=== PATIENT | female | born 1935 | race Caucasian/White ===

== ENCOUNTER → 2016-09-17 | Outpatient (CLI) | payer OTHER, BC | LOC: BHLMT 10:00 | PROVIDERS: ATTEND Internal Medicine Cardiovascular Disease | DX: I48.91 Unspecified atrial fibrillation (principal) | CPT/HCPCS: 93017-PO ==

== ENCOUNTER → 2016-09-22 | Outpatient (CLI) | payer OTHER, BC ==
--- NOTE | 2016-09-22 15:36 | DX ---
PA and lateral chest. 09/22/2016. Clinical History: Follow-up right pleural effusion. Comparison Study: August 10, 2016. Findings: Decreasing right pleural effusion is identified from prior examination. Mild residual blunt ing of the right costophrenic angle. Left lung is clear. Heart size is normal. Post traumatic deformity of the right ribs appears unchanged.. Impression: Decreasing right pleural effusion from prior examination, otherwise unchanged.
== END ==
LOC: FIMAGING 11:18
PROVIDERS: ATTEND Internal Medicine Pulmonary Disease
DX: J90 Pleural effusion, not elsewhere classified (principal)

== ENCOUNTER 2016-10-28 12:07 | Observation (INO) | payer OTHER, BC ==
[2016-10-28] MEDS ORDERED: diphenhydrAMINE 25 MG CAP PO ONE (12:15)
[2016-10-28] MEDS ORDERED: DIAZEPAM 5 MG TAB PO ONE (12:15)
[2016-10-28] MEDS ORDERED: BACITRACIN IRRIGATION/NS 50,000 UNITS/1,000 ML BTL IRR ONE (12:15)
[2016-10-28] MEDS ORDERED: ceFAZolin 2 GM/DEXTROSE 100 ML IV ONE (12:15)
[2016-10-28] MEDS ORDERED: NS 1,000 ML IV ONE (12:15)
--- NOTE | 2016-10-28 12:54 | CPEKG ---
Heart Rate: 68 RR Interval: 882 QRSD Interval: 72 QT Interval: 408 QTC Interval: 434 QRS [place]: 72 T Wave [place]: -54 EKG Severity - ABNORMAL ECG - EKG Impression: ATRIAL FIBRILLATION EKG Impression: LOW VOLTAGE THROUGHOUT EKG Impression: NONSPECIFIC T ABNORMALITIES, ANTERIOR LEADS Electronically Signed By: Ronal Montilla 28-Oct-2016 12:58:36
[2016-10-28 13:00] LABS: % IMMATURE GRANULYOCYTES 0.4 % (0.0-1.1); ABSOLUTE IMMATURE GRANULOCYTES 0.03 10^3/uL (0.00-0.10); ADD DIFF? NO; ADD MORPH? NO; ADD SCAN? NO; ATYPICAL LYMPHOCYTE FLAG 10 (0-99); FRAGMENT RBC FLAG 0 (0-99); HEMATOCRIT 43.7 % (38.0-47.0); HEMOGLOBIN 14.3 g/dL (12.6-16.3); LEFT SHIFT FLG 0 (0-99); LIPEMIA HEMOLYSIS FLAG 80 (0-99); MEAN CELL HEMOGLOBIN 29.2 pg (27.9-34.1); MEAN CELL HEMOGLOBIN CONCENTR. 32.7 g/dL (32.4-36.7); MEAN CELL VOLUME 89.4 fL (81.5-99.8); MEAN PLATELET VOLUME 11.6 fL (8.7-11.7); PLATELET CLUMPS FLAG 0 (0-99); PLATELET COUNT 258 10^3/uL (150-400); RED BLOOD CELL COUNT 4.89 10^6/uL (4.18-5.33); RED CELL DISTRIBUTION WIDTH 13.9 % (11.5-15.2)
[2016-10-28 13:19] LABS: INR 1.1 (0.83-1.16); PROTIME(PATIENT) 14.1 SEC (12.0-15.0)
[2016-10-28 13:21] LABS: ANION GAP 10 mEq/L (8-16); CALCIUM 9.4 mg/dL (8.5-10.4); CARBON DIOXIDE 21 mEq/l (22-31); CHLORIDE 108 mEq/L (97-110); CREATININE 0.6 mg/dL (0.6-1.0); GLOMERULAR FILTRATION RATE > 60; GLUCOSE 108 mg/dL (70-100); POTASSIUM 4.4 mEq/L (3.5-5.2); SODIUM 139 mEq/L (134-144)
[2016-10-28] MEDS ORDERED: LIDOCAINE 1% 30 ML SDV ONE (13:32)
[2016-10-28] MEDS ORDERED: LIDO/EPI 1% **for epidural** 30 ML SDV ONE (13:32)
[2016-10-28] MEDS ORDERED: fentaNYL 100 MCG/2 ML INJ ONE (13:33)
[2016-10-28] MEDS ORDERED: BUPIVACAINE 0.5% 30 ML SDV ONE (13:33)
[2016-10-28] MEDS ORDERED: MIDAZOLAM 2 MG/2 ML VIAL ONE (13:33)
[2016-10-28] MEDS ORDERED: IOPAMIDOL (ISOVUE-300) 200 ML BTL IV ONE (14:34)
[2016-10-28] MEDS ORDERED: traMADol 50 MG TAB PO ONE (16:30)
[2016-10-28] MEDS: CARVEDILOL 3.125 MG TAB PO SCH (18:44)
[2016-10-28] MEDS ORDERED: hydrOXYzine HCL 25 MG TAB PO SCH (21:00)
[2016-10-28] MEDS ORDERED: PRAVASTATIN SODIUM 20 MG TAB PO SCH (21:00)
[2016-10-28] MEDS ORDERED: DIGOXIN 125 MCG TAB PO SCH (21:00)
[2016-10-28] MEDS: traMADol 50 MG TAB PO PRN (21:22)
[2016-10-29 05:10] LABS: % IMMATURE GRANULYOCYTES 0.4 % (0.0-1.1); ABSOLUTE IMMATURE GRANULOCYTES 0.04 10^3/uL (0.00-0.10); ADD DIFF? NO; ADD MORPH? NO; ADD SCAN? NO; ATYPICAL LYMPHOCYTE FLAG 20 (0-99); FRAGMENT RBC FLAG 0 (0-99); HEMATOCRIT 37.8 % (38.0-47.0); HEMOGLOBIN 12.2 g/dL (12.6-16.3); LEFT SHIFT FLG 0 (0-99); LIPEMIA HEMOLYSIS FLAG 80 (0-99); MEAN CELL HEMOGLOBIN 29.3 pg (27.9-34.1); MEAN CELL HEMOGLOBIN CONCENTR. 32.3 g/dL (32.4-36.7); MEAN CELL VOLUME 90.9 fL (81.5-99.8); MEAN PLATELET VOLUME 12.1 fL (8.7-11.7); PLATELET CLUMPS FLAG 0 (0-99); PLATELET COUNT 203 10^3/uL (150-400); RED BLOOD CELL COUNT 4.16 10^6/uL (4.18-5.33); RED CELL DISTRIBUTION WIDTH 13.9 % (11.5-15.2)
[2016-10-29 05:25] LABS: ANION GAP 8 mEq/L (8-16); CALCIUM 8.7 mg/dL (8.5-10.4); CARBON DIOXIDE 21 mEq/l (22-31); CHLORIDE 106 mEq/L (97-110); CREATININE 0.6 mg/dL (0.6-1.0); GLOMERULAR FILTRATION RATE > 60; GLUCOSE 79 mg/dL (70-100); POTASSIUM 4.3 mEq/L (3.5-5.2); SODIUM 135 mEq/L (134-144)
[2016-10-29] MEDS ORDERED: LEVOTHYROXINE 50 MCG TAB PO SCH (06:00)
[2016-10-29] MEDS: traMADol 50 MG TAB PO PRN (07:30)
[2016-10-29] MEDS: CARVEDILOL 3.125 MG TAB PO SCH (07:49)
[2016-10-29 08:24] VITALS: BP 109/48; PULSE 82; RESP 19; TEMP 97.6; O2SAT 92
--- NOTE | 2016-10-29 08:40 | CPEKG ---
Heart Rate: 88 RR Interval: 682 QRSD Interval: 72 QT Interval: 372 QTC Interval: 450 QRS [place]: 88 T Wave [place]: -69 EKG Severity - ABNORMAL ECG - EKG Impression: AFIB/FLUT AND V-PACED COMPLEXES EKG Impression: LOW VOLTAGE IN FRONTAL LEADS EKG Impression: BORDERLINE PROLONGED QT INTERVAL Electronically Signed By: Ronal Montilla 29-Oct-2016 12:11:54
[2016-10-29] MEDS ORDERED: PANTOPRAZOLE SODIUM 40 MG TAB PO SCH (09:00)
[2016-10-29] MEDS ORDERED: CITALOPRAM 20 MG TAB PO SCH (09:00)
[2016-10-29] MEDS ORDERED: SPIRONOLACTONE 25 MG TAB PO SCH (09:00)
[2016-10-29] MEDS ORDERED: RIVAROXABAN 20 MG TAB PO SCH (09:00)
[2016-10-29] MEDS ORDERED: CHOLECALCIFEROL VIT D3 1,000 UNITS TAB PO SCH (09:00)
--- NOTE | 2016-10-29 15:21 | PDIAF ---
- Diagnosis Diagnosis: AF/Sick sinus syndrome Code Status: Full Code - Medication Management Discharge Medications: Medications to Continue on Transfer Carvedilol [Coreg (*)] 1.5625 mg PO BIDMEAL 10/28/16 [Last Taken 10/28/16] Cholecalciferol Vit D3 [Vitamin D3 (*)] 1,000 units PO DAILY 10/28/16 [Last Taken 10/28/16] Citalopram Hydrobromide [Citalopram HBr] 10 mg PO DAILY 10/28/16 [Last Taken ] Digoxin [Digitek] 125 mcg PO HS 10/28/16 [Last Taken 10/27/16] Levothyroxine [Synthroid 50 mcg (*)] 50 mcg PO DAILY06 10/28/16 [Last Taken ] Lovastatin 20 mg PO HS 10/28/16 [Last Taken 10/27/16] Pantoprazole Sodium [Protonix 40mg (*)] 40 mg PO DAILY 10/28/16 [Last Taken ] Rivaroxaban [Xarelto] 20 mg PO DAILY 10/28/16 [Last Taken 10/24/16] Spironolactone [Aldactone 25 MG (*)] 25 mg PO DAILY 10/28/16 [Last Taken ] hydrOXYzine HCL [hydrOXYzine HCL (RX)] 25 mg PO HS 10/28/16 [Last Taken 10/27/16 ] traMADol [Ultram 50 mg (*)] 50 mg PO Q12 PRN #20 tab 10/29/16 [Last Taken Unknown] Discharge Medications: Refer to the Discharge Home Medication list for PRN reason. - Orders Services needed: Physical Therapy Diet Recommendation: no restrictions on diet Diet Texture: Regular Texture Diet - Follow Up Care Current Providers and Referrals: Armand Beyer MD [Primary Care Provider] - Gabriele Noble MD [Medical Doctor] - follow up in 2 weeks
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
--- NOTE | 2016-10-30 10:47 | EPPROC ---
Electrophysiology Procedure Note: PROCEDURE PERFORMED: * Implantation of an V Pacemaker * Fluoroscopy INDICATION: THis is a 80 yr old with symtomatic chronic AF with low BP with AV node blockers and high HR without them. Hence it was decided to perform PPM implant and AV node ablation. Hence pt was brought in to place single chamber PPM. PROCEDURE NOTE: Patient presented to the cardiac catherization laboratory in a fasting, post absorptive state. Cardiac laboratory operations coordinator nurse administered moderate sedation. The left infraclavicular area was prepped and draped in the usual sterile fashion. Lidocaine plus bupivacaine was used for local anesthesia. Using a combination of blunt and sharp dissection and electrocautery, the dissection was carried down to the prepectoral fascia. Fluoroscopy was utilized during the entire procedure for venous access and placement of the leads. Using usual technique, left cephalic vein was accessed and a 7F sheath was placed. Placement of the guidewire into the venous system was confirmed by low- pressure blood return and also by visualizing the guide wire advancing into the inferior vena cava. A purse string suture was applied around the guide wire. One #7 Malagasy sheath was advanced under fluoroscopic guidance over the guidewire. An active fixation ventricular lead was advanced into the right ventricular apex and screwed in place. The peel away sheath was removed. Pacing thresholds, sensing parameters and lead impedances were measured. There was no diaphragmatic stimulation at maximum output. The lead was sutured to the prepectoral fascia with 3 nonabsorbable sutures.Pocket was created and flushed using antibiotic solution. The pocket was again inspected for any bleeding. The lead was attached to the pacemaker securely. The pacemaker was inserted into the pocket and secured in place with a nonabsorbable suture. Fluoroscopy was performed in ARTHUR and GREEK planes to verify right-sided placement of the lead. Also fluoroscopy of the pacemaker pocket was performed. The pacemaker pocket was closed in 3 layers with absorbable monocryl sutures. Appropriate dressing was applied. The patient left the cardiac catheterization laboratory in stable condition. Serial Numbers: * Device: Biotronik ELuna SN [id number] * Ventricular Lead: Biotronik Solia S53 SN [id number] Stimulation Thresholds & Impedance Measurements: * Ventricular Lead 7.7mV, 0.4@0.4ms, 576Ohms [place] Pacing Parameters * Pacing mode: VVI * Lower rate: 60 Patient Problems: Problems Problem Status Onset Recurrent right pleural effusion Acute
== END 2016-10-29 12:25 | disposition home health service (06) ==
LOC: FCATH 12:07 → F2W 13:10
PROVIDERS: ADMIT Internal Medicine Cardiovascular Disease; ATTEND Internal Medicine Cardiovascular Disease
DX: I48.2 Chronic atrial fibrillation (principal); I95.2 Hypotension due to drugs; T46.2X5A Adverse effect of other antidysrhythmic drugs, initial encounter; I50.32 Chronic diastolic (congestive) heart failure
CPT/HCPCS: 33207; 71020; 93005; C1769; C1786; C1898; J0690; J2250; J3010; Q9967

== ENCOUNTER 2016-11-19 07:27 | Observation (INO) | payer OTHER, BC ==
[~2016-11-19 07:27] MED LIST: MIDAZOLAM 2 MG/2 ML VIAL IVP ONE; NS 1,000 ML IV ONE
[2016-11-19] MEDS ORDERED: HEPARIN 10,000 UNIT/10 ML MDV ONE (07:52)
[2016-11-19] MEDS ORDERED: ISOPROTERENOL HCL 0.2 MG/ML 5ML AMP ONE (07:52)
[2016-11-19] MEDS ORDERED: LIDOCAINE 1% 30 ML SDV ONE (07:52)
[2016-11-19] MEDS ORDERED: BUPIVACAINE 0.5% 30 ML SDV ONE (07:52)
--- NOTE | 2016-11-19 07:52 | CPEKG ---
Heart Rate: 91 RR Interval: 659 QRSD Interval: 80 QT Interval: 364 QTC Interval: 448 QRS [place]: 89 T Wave [place]: -74 EKG Severity - ABNORMAL ECG - EKG Impression: AFIB/FLUT AND V-PACED COMPLEXES EKG Impression: BORDERLINE RIGHT AXIS DEVIATION EKG Impression: NONSPECIFIC REPOL ABNORMALITY, DIFFUSE LEADS Electronically Signed By: Schuyler Wagner 20-Nov-2016 08:57:11
[2016-11-19 08:09] LABS: % IMMATURE GRANULYOCYTES 0.6 % (0.0-1.1); ABSOLUTE IMMATURE GRANULOCYTES 0.05 10^3/uL (0.00-0.10); ADD DIFF? NO; ADD MORPH? NO; ADD SCAN? NO; ATYPICAL LYMPHOCYTE FLAG 10 (0-99); FRAGMENT RBC FLAG 0 (0-99); HEMATOCRIT 45.2 % (38.0-47.0); HEMOGLOBIN 15.1 g/dL (12.6-16.3); LEFT SHIFT FLG 0 (0-99); LIPEMIA HEMOLYSIS FLAG 80 (0-99); MEAN CELL HEMOGLOBIN CONCENTR. 33.4 g/dL (32.4-36.7); MEAN CELL VOLUME 89.7 fL (81.5-99.8); MEAN PLATELET VOLUME 11.6 fL (8.7-11.7); PLATELET CLUMPS FLAG 10 (0-99); PLATELET COUNT 249 10^3/uL (150-400); RED BLOOD CELL COUNT 5.04 10^6/uL (4.18-5.33); RED CELL DISTRIBUTION WIDTH 13.9 % (11.5-15.2)
[2016-11-19 08:18] LABS: INR 1.14 (0.83-1.16); PROTIME(PATIENT) 14.5 SEC (12.0-15.0)
[2016-11-19 08:19] LABS: APTT 29.9 SEC (23.0-38.0)
[2016-11-19 08:23] LABS: ANION GAP 11 mEq/L (8-16); CALCIUM 9.3 mg/dL (8.5-10.4); CARBON DIOXIDE 20 mEq/l (22-31); CHLORIDE 105 mEq/L (97-110); CREATININE 0.6 mg/dL (0.6-1.0); DIGOXIN 0.6 ng/mL (0.8-2.0); GLOMERULAR FILTRATION RATE > 60; GLUCOSE 94 mg/dL (70-100); MAGNESIUM 1.9 mg/dL (1.6-2.3); POTASSIUM 4.3 mEq/L (3.5-5.2); SODIUM 136 mEq/L (134-144)
[2016-11-19] MEDS ORDERED: ONDANSETRON 4 MG/2 ML VIAL ONE (08:47)
[2016-11-19] MEDS ORDERED: PROPOFOL 200 MG/20 ML VIAL ONE (08:47)
[2016-11-19] MEDS ORDERED: LIDOCAINE 2% JELLY 5 ML TUBE ONE (08:47)
[2016-11-19] MEDS ORDERED: fentaNYL 250 MCG/5 ML INJ ONE (08:47)
[2016-11-19] MEDS ORDERED: RIVAROXABAN 20 MG TAB PO SCH ×2 (09:00→21:00)
[2016-11-19] MEDS ORDERED: PHENYLEPHRINE HCL 100 MCG/ML SYR ONE ×3 (09:02→09:39)
[2016-11-19] MEDS ORDERED: epHEDrine SULFATE 10 MG/ML SYR ONE (09:05)
[2016-11-19] MEDS ORDERED: ACETAMINOPHEN 325 MG TAB PO PRN (09:42)
[2016-11-19] MEDS ORDERED: OXYCODONE/APAP 5/325 TAB PO PRN (09:42)
[2016-11-19] MEDS ORDERED: ONDANSETRON 4 MG/2 ML VIAL IVP PRN (09:42)
--- NOTE | 2016-11-19 10:26 | CPEKG ---
Heart Rate: 99 RR Interval: 606 P-R Interval: 137 QRSD Interval: 116 QT Interval: 412 QTC Interval: 529 P [place]: 0 QRS [place]: -76 T Wave [place]: 101 EKG Severity - ABNORMAL ECG - EKG Impression: VENTRICULAR-PACED RHYTHM Electronically Signed By: Schuyler Wagner 20-Nov-2016 08:57:21
[2016-11-19 10:41] LABS: ANION GAP 8 mEq/L (8-16); CALCIUM 8.7 mg/dL (8.5-10.4); CARBON DIOXIDE 20 mEq/l (22-31); CHLORIDE 108 mEq/L (97-110); CREATININE 0.6 mg/dL (0.6-1.0); GLOMERULAR FILTRATION RATE > 60; GLUCOSE 87 mg/dL (70-100); MAGNESIUM 1.9 mg/dL (1.6-2.3); POTASSIUM 4.2 mEq/L (3.5-5.2); SODIUM 136 mEq/L (134-144)
[2016-11-19] MEDS: PANTOPRAZOLE SODIUM 40 MG TAB PO SCH (12:05)
[2016-11-19] MEDS: SPIRONOLACTONE 25 MG TAB PO SCH (12:05)
[2016-11-19] MEDS ORDERED: NON-FORMULARY NEW DRUG (Lovastatin [Lovastatin] 20 MG) PO SCH (21:00)
[2016-11-19] MEDS ORDERED: hydrOXYzine HCL 25 MG TAB PO SCH (21:00)
[2016-11-19] MEDS ORDERED: PRAVASTATIN SODIUM 20 MG TAB PO SCH (21:00)
[2016-11-20 05:09] LABS: % IMMATURE GRANULYOCYTES 0.5 % (0.0-1.1); ABSOLUTE IMMATURE GRANULOCYTES 0.04 10^3/uL (0.00-0.10); ADD DIFF? NO; ADD MORPH? NO; ADD SCAN? NO; ATYPICAL LYMPHOCYTE FLAG 10 (0-99); FRAGMENT RBC FLAG 20 (0-99); HEMATOCRIT 41.5 % (38.0-47.0); HEMOGLOBIN 13.6 g/dL (12.6-16.3); LEFT SHIFT FLG 0 (0-99); LIPEMIA HEMOLYSIS FLAG 80 (0-99); MEAN CELL HEMOGLOBIN 29.8 pg (27.9-34.1); MEAN CELL HEMOGLOBIN CONCENTR. 32.8 g/dL (32.4-36.7); MEAN CELL VOLUME 90.8 fL (81.5-99.8); MEAN PLATELET VOLUME 11.5 fL (8.7-11.7); PLATELET CLUMPS FLAG 10 (0-99); PLATELET COUNT 215 10^3/uL (150-400); RED BLOOD CELL COUNT 4.57 10^6/uL (4.18-5.33); RED CELL DISTRIBUTION WIDTH 13.6 % (11.5-15.2)
[2016-11-20 05:14] LABS: ANION GAP 6 mEq/L (8-16); CALCIUM 8.9 mg/dL (8.5-10.4); CARBON DIOXIDE 25 mEq/l (22-31); CHLORIDE 106 mEq/L (97-110); CREATININE 0.6 mg/dL (0.6-1.0); GLOMERULAR FILTRATION RATE > 60; GLUCOSE 72 mg/dL (70-100); POTASSIUM 4.5 mEq/L (3.5-5.2); SODIUM 137 mEq/L (134-144)
[2016-11-20 05:20] LABS: INR 2.99 (0.83-1.16); PROTIME(PATIENT) 31.5 SEC (12.0-15.0)
[2016-11-20 05:23] LABS: CREATINE KINASE-MB FRACTION 1.57 ng/mL (0-3.19); TROPONIN I 0.129 ng/mL (0-0.034)
[2016-11-20] MEDS ORDERED: LEVOTHYROXINE 50 MCG TAB PO SCH (06:00)
[2016-11-20 07:45] VITALS: PULSE 100
--- NOTE | 2016-11-20 08:47 | CPEKG ---
Heart Rate: 99 RR Interval: 606 QRSD Interval: 130 QT Interval: 404 QTC Interval: 519 QRS [place]: -79 T Wave [place]: 96 EKG Severity - ABNORMAL ECG - EKG Impression: ATRIAL FIBRILLATION WITH VENTRICULAR PACING Electronically Signed By: Schuyler Wagner 20-Nov-2016 14:09:18
[2016-11-20] MEDS: PANTOPRAZOLE SODIUM 40 MG TAB PO SCH (08:51)
[2016-11-20] MEDS: SPIRONOLACTONE 25 MG TAB PO SCH (08:52)
[2016-11-20] MEDS ORDERED: NON-FORMULARY NEW DRUG (Citalopram Hydrobromide [Citalopram Hbr] 10 MG) PO SCH (09:00)
[2016-11-20] MEDS ORDERED: CITALOPRAM 20 MG TAB PO SCH (09:00)
[2016-11-20] MEDS ORDERED: Herbals/Supplements -Info Only PO SCH (09:00)
[2016-11-20] MEDS ORDERED: CHOLECALCIFEROL VIT D3 1,000 UNITS TAB PO SCH (09:00)
[2016-11-20 09:24] LABS: INR 2.41 (0.83-1.16); PROTIME(PATIENT) 26.5 SEC (12.0-15.0)
--- NOTE | 2016-11-20 09:47 | EPPROC ---
Electrophysiology Procedure Note: CATHETER MEDIATED ABLATION OF THE AV JUNCTION Procedures performed: 53912 AV node ablation Fluoroscopy INDICATION: Atrial fibrillation, unable to rate control despite maximally tolerated medical therapy Catheters & Anesthesia: The patient arrived in the Electrophysiology Laboratory in the fasting state. General sedation was administered. The right groin and left groin area were prepped and draped in the usual sterile manner. Appropriate non-invasive blood pressure, pulse oximetry and end-tidal CO2 monitoring was established. All catheters were placed percutaneously using the modified Seldinger technique and advanced into position under fluoroscopic guidance). A #7 Moroccan deflectable quadrapolar electrode catheter (2mm-5mm-2mm spacing) with 8 mm tip electrode was advanced to the right atrium. A total of 3 RF applications were delivered. RF#1 was applied in the area of the compact AV node. RF#2 was applied to the same area as RF#1. RF#3 was applied to the area of the fast AV brian pathway. RF#4 was applied to the right midseptal tricuspid annulus. There was complete AV block after RF#1. Cessation of pacing revealed that there was junctional escape rhythm at a rate of 43 bpm. Pacemaker implantation was done previously. The pacemaker was programmed to a lower rate of 100 ppm to reduce the risk of sudden associated with torsades de pointes. The lower rate will gradually be reduced to 60 ppm after 1 month . Fluoroscopically pacemaker lead positions were unchanged after procedure Pacemaker thresholds and impedances were unchanged after the procedure The catheters were removed. The patient was transferred to the cardiovascular holding area in stable condition. Vascular access sheaths were removed in the holding area. There were no apparent complications. CONCLUSIONS: * Atrial fibrillation with rapid ventricular response. * Successful ablation of the AV junction producing complete AV block. * Junctional escape rhythm at a rate of 42 bpm. * No complications. Patient Problems: Problems Problem Status Onset Recurrent right pleural effusion Acute
[2016-11-20] MEDS ORDERED: RANITIDINE SYRUP 15 MG/1 ML UDSYR PO SCH (10:30)
[2016-11-20] MEDS ORDERED: FAMOTIDINE 20 MG TAB PO PRN (10:58)
[2016-11-20] MEDS ORDERED: FAMOTIDINE 20 MG TAB PO ONE (11:00)
--- NOTE | 2016-11-20 11:04 | ECHO ---
[id number] + + [address] : : [place] [address] : : [phone] + Adult Echocardiographic Report + ------+ :Name: BREANA PAULINO LStudy Date: 11/20/2016 08:55 AM : : Hospital Admission Number: [id number] Locatio n: 217: :: 1935 Gender: Female Height: 67 in : :Age: 80 yrs Race: WH Weight: 144 lb : :Reason For Study: Eval for Effusion : : BSA: 1.8 meters 2 : :History: AV brian Ablation : + ------+ MMode/2D Measurements \T\ Calculations IVSd: 0.74 cm LVIDd: 3.0 cm FS: 33.9 % LVPWd: 0.77 cm LVIDs: 2.0 cm EDV(Teich): 35.6 ml ESV(Teich): 12.7 ml EF(Teich): 64.4 % Normal Measurement Values: + + :LVIDd (3.5-5.7cm) IVSd (0.6-1.1cm) LVPWd (0.6-1.1cm) Aortic Root (2.0-3.7cm)Left Atrium (1.5-4.0cm): :LV Vol(d) (76-115ml) LV Vol(s) (29-48ml) Ejec Fraction (50-65%)PV Dannie (0.6- 1.2m/s) TV Dannie (0.4-1.0m/s) : :MV E Dannie (0.8-1.0m/s)MV A Dannie (0.3-1.0m/s)LVOT Dannie (0.7-1.2m/s) Asc Ao Dannie ( 0.9-1.8m/s) : + + Left Ventricle The left ventricular ejection fraction is normal. Right Ventricle There is a pacemaker lead in the right ventricle. Pericardium/Pleural There is a fat pad seen. There is no pericardial effusion. Conclusion This is a limited echo to evaluate for a pericardial effusion. This is a limited echo to evaluate for a pericardial effusion. The left ventricular ejection fraction is normal. There is a pacemaker lead in the right ventricle. There is a fat pad seen. There is no pericardial effusion. Final Reading Physician: Wyatt Avalos, Melectronically signed on 11/20/2016 11:02 AM Ordering Physician: Marylin Monroy Performed By: Luis M Bailey, MATILDECS
[2016-11-20 11:44] VITALS: BP 110/66; RESP 20; TEMP 98.3; O2SAT 92
--- NOTE | 2016-11-20 12:47 | GDS ---
[f rep st] DISCHARGE SUMMARY DISCHARGE DIAGNOSES: 1. Chronic atrial fibrillation status post pacer placement and AV brian ablation. 2. Nonobstructive coronary artery disease. 3. Chronic diastolic congestive heart failure. 4. Reflux. HOSPITAL COURSE: For detailed H and P, please see prior dictation. Briefly, the patient is an 80-y ear-old female with a history of chronic atrial fibrillation and complaints of shortness of breath. She wore a monitor and her symptoms of shortness of breath did correlate with elevated rates of 130 beats per minute. She was started on Coreg with minimal improvement in her elevated rates. Ultima tely, she decided to proceed with pacemaker placement and AV brian ablation. Her pacer was placed a few weeks ago and was uncomplicated. She was readmitted to the hospital on 11/19 for an AV brian a blation which was performed by Dr. Gabriele Noble. The procedure was uncomplicated. She has been mon itored on telemetry and is ventricularly paced. Her EKG reveals V pacing. The day after her ablati on an echocardiogram was negative for pericardial effusion. The day of discharge, she did complain of some mild chest discomfort which felt similar to reflux. By the time she was discharged home her discomfort had resolved. She had a prior angiogram which showed nonobstructive coronary disease. Her troponin peaked at 0.129. PHYSICAL EXAMINATION: GENERAL: Patient appears in no acute distress. VITAL SIGNS: Blood pressure 110/66, heart rate 100, oxygen saturation 92% on room air, afebrile. LUNGS: Clear to auscultation . No wheezes, rhonchi, or crackles auscultated. CARDIAC: Regular rate and rhythm without any sign ificant murmurs, rubs or gallops appreciated. EXTREMITIES: No evidence of edema. DISCHARGE MEDICATIONS: Vitamin D3 daily, citalopram 10 mg daily, hydroxyzine 25 mg at bedtime, Synt hroid 50 mcg daily, lovastatin 20 mg at bedtime, Protonix 40 mg daily, spironolactone 25 mg daily, h erbal supplement daily, Xarelto 20 mg daily on hold until her INR decreases to less than 2. Digoxin and Coreg have been discontinued. PLAN: The patient is currently stable and ready for discharge home. She has been given groin preca utions. Her groin care where access was obtained for the EP study is clean and intact without any e vidence of infection or hematoma. Her INR on admission was normal but then increased to 2.99. It w as rechecked and trending downward to 0.41. She will need to have a repeat PT/INR on Wednesday 017. If her INR is less than 2, Xarelto can be resumed at that time. She will hold Xarelto until h er PT/INR on Wednesday. She will follow up with Dr. Noble as scheduled on 11/27 at 2:30. Greater than 30 minutes was spent coordinating the patient's care today. /[id number]/MODL
== END 2016-11-20 15:49 | disposition home or self-care (01) ==
LOC: FCATH 07:27 → F2W 09:42
PROVIDERS: ADMIT Internal Medicine Cardiovascular Disease; ATTEND Internal Medicine Cardiovascular Disease
PROC: B246ZZZ Ultrasonography of Right and Left Heart (ICD-10-PCS; principal; 2016-11-19)
PROC: 02583ZZ Destruction of Conduction Mechanism, Percutaneous Approach (ICD-10-PCS; principal; 2016-11-19)
DX: I48.2 Chronic atrial fibrillation (principal); I25.10 Atherosclerotic heart disease of native coronary artery without angina pectoris; I50.32 Chronic diastolic (congestive) heart failure; K21.9 Gastro-esophageal reflux disease without esophagitis; E03.9 Hypothyroidism, unspecified; E11.9 Type 2 diabetes mellitus without complications; E78.5 Hyperlipidemia, unspecified; I10 Essential (primary) hypertension; Z87.891 Personal history of nicotine dependence; Z95.0 Presence of cardiac pacemaker; Z79.01 Long term (current) use of anticoagulants
CPT/HCPCS: 93005; 93308; 93650; C1732; J1644; J2370; J2405; J2704; J3010

== ENCOUNTER 2016-11-27 14:24 | Observation (INO) | payer OTHER, BC ==
[2016-11-27] MEDS ORDERED: IBUPROFEN 200 MG TAB PO PRN (17:31)
[2016-11-27] MEDS ORDERED: ONDANSETRON 4 MG/2 ML VIAL IVP PRN (17:31)
--- NOTE | 2016-11-27 17:54 | GHP ---
[f rep st] HISTORY AND PHYSICAL DATE OF ADMISSION: 11/27/2016 CHIEF COMPLAINT: Chest pain. HISTORY OF PRESENT ILLNESS: This is an 80-year-old female, who was discharged from [facility] on 11/19/2016 after undergoing a pacemaker placement and AV node ablation for chronic atria l fibrillation. During that hospital stay, she was found to have nonobstructive coronary artery dis ease by cardiac catheterization. She also has a history of chronic diastolic heart failure and GERD . The patient was directly admitted to the hospital by her farmworker bulbs, Dr. Noble, after the patient r eported chest pain. The pain began last night spontaneously and is described as sharp, localized, l eft-sided chest pain rated 8/10. The pain is worse with deep inspiration and it is better with shal low breathing. She denies any previous episodes like this. She denies any trauma. She denies any history of blood clots. She has been taking Xarelto for her atrial fibrillation and has not been mi ssing dosages. PAST MEDICAL HISTORY: 1. Atrial fibrillation, status post ablation and pacemaker placement. 2. Coronary artery disease, nonobstructing. 3. Chronic diastolic heart failure. 4. Type 2 diabetes mellitus. 5. Hyperlipidemia. 6. Hypertension. 7. Pleural effusions. PAST SURGICAL HISTORY: 1. Gastric bypass. 2. Tonsillectomy. 3. Cholecystectomy. 4. Hernia repair. MEDICATIONS: Home medications were reviewed. Refer to [employer] for details. ALLERGIES: No known drug allergies. SOCIAL HISTORY: The patient is a former smoker. She denies any alcohol or illicit drug use. FAMILY HISTORY: Reviewed and noncontributory. REVIEW OF SYSTEMS: Comprehensive 10-point review of systems was done and is negative, except for as mentioned in the HPI and below. CONSTITUTIONAL: Denies fevers, chills, or sweats. PHYSICAL EXAMINATION: VITAL SIGNS: Blood pressure 110/66, pulse of 100, respiratory rate 20, O2 sa turation 92% on room air. Temperature afebrile. GENERAL: No acute distress. HEAD: Normocephalic , atraumatic. Eyes are PERRLA. Sclerae anicteric. MOUTH: Moist mucous membranes. NECK: Supple. No lymphadenopathy. CARDIOVASCULAR: S1, S2, no JVD. No lower extremity edema. PULMONARY: Lung s are clear. No wheezes, rales, or rhonchi. The patient is taking shallow breaths. No respiratory distress. CHEST: No rashes. There is no tenderness to palpation over the anterior chest wall. A BDOMEN: Soft, nontender, nondistended. No guarding or rebound tenderness. Normoactive bowel sound s. EXTREMITIES: No clubbing or cyanosis. NEURO: Cranial nerves 2-12 grossly intact. No focal mo tor or sensory deficits. SKIN: Clear, no rashes. DIAGNOSTICS: Echocardiogram done 11/20/2016 was reviewed showing a normal left ventricular ejection fraction and no pericardial effusion. I visualized and personally interpreted her last EKG in [facility] done November 20, 2016, where she was in atrial fibrillation with ventricular pacing. She had an INR done on 11/23/2016 that was 1.11. ASSESSMENT AND PLAN: This is an 80-year-old female, discharged from [facility] on 0 11/20/2016 after undergoing a pacemaker placement and AV node ablation. I have been asked to see due to: 1. Pleuritic chest pain. Differential diagnosis includes pleurisy from viral infection versus recu rrent pleural effusion since she has a history of this versus pneumonia versus less likely pulmonary embolism in the setting of being anticoagulated with Xarelto versus pericarditis. PLAN: The patie nt will be placed in observation. We will cycle her troponins. We will also order inflammatory mar kers to evaluate for pericarditis. A chest x-ray has been ordered as well. Check baseline CBC and BMP. 2. History of atrial fibrillation, status post pacemaker and ablation. 3. PLAN: Continue home dose of Xarelto. 4. History of type 2 diabetes mellitus. PLAN: Monitor blood sugars and continue home medications. /[id number]/MODL
[2016-11-27 18:15] LABS: HEMATOCRIT 43.2 % (38.0-47.0)
--- NOTE | 2016-11-27 18:15 | CPEKG ---
Heart Rate: 90 RR Interval: 667 QRSD Interval: 116 QT Interval: 436 QTC Interval: 534 QRS [place]: -77 T Wave [place]: 95 EKG Severity - ABNORMAL ECG - EKG Impression: AFIB/FLUT AND V-PACED COMPLEXES Electronically Signed By: Martín Rainey 28-Nov-2016 08:34:26
[2016-11-27 18:31] LABS: ALANINE AMINOTRANSFERASE 29 IU/L (9-52); ALBUMIN 3.4 g/dL (3.5-5.0); ALKALINE PHOSPHATASE 136 IU/L (38-126); ANION GAP 10 mEq/L (8-16); ASPARTATE AMINOTRANSFERASE 32 IU/L (14-46); BILIRUBIN,TOTAL 0.7 mg/dL (0.1-1.4); C-REACTIVE PROTEIN 5.8 mg/L (<10.0); CALCIUM 9.4 mg/dL (8.5-10.4); CARBON DIOXIDE 18 mEq/l (22-31); CHLORIDE 106 mEq/L (97-110); CREATININE 0.6 mg/dL (0.6-1.0); GLOMERULAR FILTRATION RATE > 60; GLUCOSE 85 mg/dL (70-100); POTASSIUM 4.5 mEq/L (3.5-5.2); SODIUM 134 mEq/L (134-144); TOTAL PROTEIN 6.1 g/dL (6.3-8.2)
[2016-11-28 05:25] VITALS: PULSE 90
[2016-11-28 07:27] VITALS: BP 102/62; RESP 13; TEMP 97.7; O2SAT 90
[2016-11-28] MEDS ORDERED: CITALOPRAM 20 MG TAB PO SCH (09:30)
--- NOTE | 2016-11-28 10:16 | GDS ---
[f rep st] DISCHARGE SUMMARY DISCHARGE DIAGNOSES: 1. Left sided pleuritic chest pain due to pleurisy versus symptomatic dysfunction in the left fifth rib. 2. History of atrial fibrillation, status post pacemaker and ablation. 3. History of type 2 diabetes mellitus. CONSULTANTS: Gabriele Noble MD, Cardiology. HOSPITAL COURSE: Pleuritic left sided chest pain. The patient was placed in observation where her initial troponin was negative and her EKG was nonischemic. She had a recent cardiac catheterization that was unremarkable. On exam the patient does have some tenderness over her left lateral ribs. She was given a dose of 400 mg of Motrin which helped with her pain. An ESR and CRP were done to evaluate for pericarditis, which were both unremarkable. Once again, on day of discharge, the patient is feeling better and would like to go home. She has been seen by [facility] rdiology, who are in agreement with this decision to discharge. PHYSICAL EXAM ON DISCHARGE: VITAL SIGNS: Blood pressure 102/62, pulse of 90, respiratory rate 13. O2 saturation 90% on room air. Temperature afebrile. GENERAL: In no acute distress. HEART: S1, S2. LUNGS: Clear. No wheezes, rales, or rhonchi. ABDOMEN: Soft. EXTREMITIES: No edema. DISCHARGE MEDICATIONS: Please refer to discharge medication reconciliation in [facility] for details. She will be continued on her home dose of Xarelto 20 mg daily. All home medications were continue d on her existing dosages. New medications on discharge are Motrin 400 mg p.o. q.6 hours p.r.n. april n, to be used cautiously over the next few days, if she develops severe pleuritic pain. DISCHARGE INSTRUCTIONS: The patient will be discharged home. She was instructed to trial massage a nd warm heat to see if this helps with her pain if it returns. Once again, she can also cautiously use low-dose [id number] Motrin. If her pain worsens it would not be unreasonable to proceed w ith a CT angio of the chest to rule out pulmonary embolism. However, I thought this diagnosis was u nlikely in the setting of her being anticoagulated on Xarelto, in the absence of tachycardia or hypo xemia with exam findings consistent with musculoskeletal etiology of her pain. /[id number]/MODL
--- NOTE | 2016-11-28 10:24 | SOAPPROG ---
SOAP Progress Note Assessment/Plan: Assessment/Plan: This is a 80 yr old with Chronic AF with RVR s/p PPM and AV node ablation who has chest pain dutch to pleurisy. Pt has had no change in baseline pericardial effusion, no change in lead position, no change in lead numbers. Pt feels better after NSAID. continue the same. F/U with device clinic. F/U with Dr Rainey. 11/28/16 10:21 Subjective: Pt is feeling better. VS stable. Objective: Vital Signs Temp Pulse Resp BP Pulse Ox 36.5 C 90 13 102/62 90 L 11/28/16 07:24 11/28/16 07:24 11/28/16 07:24 11/28/16 07:24 11/28/16 07:24 Laboratory Results 11/27/16 18:00 11/27/16 18:00 11/27/16 11/28/16 11/29/16 05:59 05:59 05:59 Intake Total 200 Balance 200 Physical Exam - Physical Exam General Appearance: alert, no apparent distress EENT: PERRL/EOMI, normal ENT inspection, pharynx normal, No scleral icterus (R) , No scleral icterus (L) Neck: non-tender, full range of motion, supple Respiratory: lungs clear, No crackles, No rales, No rhonchi Cardiac/Chest: regular rate, rhythm, No edema, No gallop Abdomen: normal bowel sounds, non-tender, soft Skin: normal color, warm/dry ICD10 Worksheet Patient Problems: Problems Problem Status Onset Recurrent right pleural effusion Acute
[2016-11-28] MEDS ORDERED: hydrOXYzine HCL 25 MG TAB PO SCH (21:00)
[2016-11-28] MEDS ORDERED: PRAVASTATIN SODIUM 20 MG TAB PO SCH (21:00)
[2016-11-28] MEDS ORDERED: NON-FORMULARY NEW DRUG (Lovastatin [Lovastatin] 20 MG) PO SCH (21:00)
[2016-11-29] MEDS ORDERED: LEVOTHYROXINE 50 MCG TAB PO SCH (06:00)
[2016-11-29] MEDS ORDERED: NON-FORMULARY NEW DRUG (Citalopram Hydrobromide [Citalopram Hbr] 10 MG) PO SCH (09:00)
[2016-11-29] MEDS ORDERED: CHOLECALCIFEROL VIT D3 1,000 UNITS TAB PO SCH (09:00)
[2016-11-29] MEDS ORDERED: Herbals/Supplements -Info Only PO SCH (09:00)
[2016-11-29] MEDS ORDERED: SPIRONOLACTONE 25 MG TAB PO SCH (09:00)
[2016-11-29] MEDS ORDERED: PANTOPRAZOLE SODIUM 40 MG TAB PO SCH (09:00)
[2016-11-29] MEDS ORDERED: RIVAROXABAN 10 MG TAB PO SCH (09:00)
== END 2016-11-28 12:00 | disposition home or self-care (01) ==
LOC: FCATH 14:24 → F2W 15:08
PROVIDERS: ADMIT Internal Medicine Cardiovascular Disease; ATTEND Family Medicine
DX: R07.81 Pleurodynia (principal); I48.2 Chronic atrial fibrillation; I25.10 Atherosclerotic heart disease of native coronary artery without angina pectoris; I50.32 Chronic diastolic (congestive) heart failure; K21.9 Gastro-esophageal reflux disease without esophagitis; E11.9 Type 2 diabetes mellitus without complications; E78.5 Hyperlipidemia, unspecified; I10 Essential (primary) hypertension; Z87.891 Personal history of nicotine dependence; Z95.0 Presence of cardiac pacemaker; Z79.01 Long term (current) use of anticoagulants
CPT/HCPCS: 71010; 76000; 93005; G0378

== ENCOUNTER → 2016-11-27 | Outpatient (CLI) | payer OTHER, BC | LOC: BHFA 13:15 | PROVIDERS: ATTEND Internal Medicine Cardiovascular Disease | DX: I48.91 Unspecified atrial fibrillation (principal) ==

== ENCOUNTER → 2016-11-27 | Outpatient (CLI) | payer OTHER, BC | LOC: BHFA 14:30 | PROVIDERS: ATTEND Internal Medicine Cardiovascular Disease | DX: R07.9 Chest pain, unspecified (principal) ==